=== PATIENT | male | born 1970 | race American Indian/Alaskan Native ===

== ENCOUNTER 2017-08-19 15:51 | Emergency (ER) | payer OTHER ==
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
[2017-08-19] MEDS ORDERED: MOTRIN PO ONE (19:38)
--- NOTE | 2017-08-19 20:17 | XRay Report ---
FINAL REPORT EXAM: XR CHEST ROUTINE 2V HISTORY: chest wall pain TECHNIQUE: PA and lateral views of the chest PRIORS: None. FINDINGS: Lines, tubes, and devices: N/A Lungs and pleura: Trachea is normal in position. Lungs are clear of infiltrate, pleural effusion, vascular congestion, or pneumothorax. Cardiomediastinal silhouette: Cardiac and mediastinal silhouettes are unremarkable. Other: Bony structures are intact. IMPRESSION: No acute cardiopulmonary process seen.
[2017-08-19 21:48] VITALS: BP 139/96
[2017-08-19 21:59] LABS: Anion Gap 17 mmol/L; BUN/Creatinine Ratio 10; Blood Urea Nitrogen 9 mg/dL (9-20); Calcium 9.7 mg/dL (8.4-10.2); Carbon Dioxide 28 mmol/L (22-30); Chloride 101.4 mmol/L (98-107); Glucose 95 mg/dL (75-100); Potassium 4.6 mmol/L (3.6-5.0); Sodium 142 mmol/L (137-145)
== END 2017-08-19 21:48 | disposition home or self-care (01) ==
LOC: ED 15:51
DX: R07.9 Chest pain, unspecified (principal); M25.511 Pain in right shoulder; M25.512 Pain in left shoulder; V49.59XA Passenger injured in collision with other motor vehicles in traffic accident, initial encounter; Y93.89 Activity, other specified; Y92.89 Other specified places as the place of occurrence of the external cause; Y99.8 Other external cause status
CPT/HCPCS: 36415; 71020; 80048; 84484; 93005; 93010